=== PATIENT | male | born 1985 | race Caucasian/White ===

== ENCOUNTER 2018-05-20 13:40 | Emergency (ER) | payer OTHER ==
[~2018-05-20] VITALS: Ht 165.1 cm; Wt 88.6 kg
[2018-05-20] MEDS ORDERED: ZESTRIL10 MG PO (14:17)
[2018-05-20] MEDS ORDERED: AMOXICILLIN 50500 MG PO (14:29)
[2018-05-20 14:47] VITALS: BP 149/89
== END 2018-05-20 14:48 | disposition home or self-care (01) ==
LOC: M.ERS 13:40
DX: K08.89 Other specified disorders of teeth and supporting structures (principal); I10 Essential (primary) hypertension

== ENCOUNTER 2018-06-20 13:01 | Emergency (ER) | payer OTHER ==
[~2018-06-20] VITALS: Ht 165.1 cm; Wt 84.8 kg
[~2018-06-20 13:01] MED LIST: AMOXICILLIN 50500 MG PO; ZESTRIL10 MG PO
[2018-06-20 13:05] VITALS: BP 142/88
[2018-06-20] MEDS ORDERED: PENICILLIN V P500 MG PO (13:13)
== END 2018-06-20 13:20 | disposition home or self-care (01) ==
LOC: M.ERS 13:01
DX: J02.9 Acute pharyngitis, unspecified (principal); I10 Essential (primary) hypertension